=== PATIENT | female | born 1945 ===

== ENCOUNTER 2018-11-06 15:14 | Emergency (ER) | payer MEDICARE ==
[2018-11-06 15:14] VITALS: BMI 31.8
[2018-11-06 15:26] VITALS: BP 149/75; PULSE 90; RESP 18; TEMP 98.2; O2SAT 98
--- NOTE | 2018-11-06 15:55 | ED PDOC ---
HPI: General Adult Time Seen by Provider: 11/06/18 15:36 Chief Complaint (Nursing): Flu-like Symptoms Chief Complaint (Provider): Flu-like symptoms History Per: Patient History/Exam Limitations: no limitations Onset/Duration Of Symptoms: Hrs (today) Current Symptoms Are (Timing): Still Present Additional Complaint(s): Merary Gresham is a 73 year old female, with a past medical history of HTN and hypercholesterolemia, who presents to the emergency department complaining of a dry cough associated with shortness of breath onset for x1 week. Patient states she went to her PMD this morning who gave her a nebulizer treatment and prescription for Promethazine and Azithromycin. Patient did not have any bloodwork done at the PMD's office. Patient reports the dry cough made her anxious and began to feel short of breath again prompting ED visit. She denies any fever, chills or other medical complaints. PMD: Reji Rico Past Medical History Reviewed: Historical Data, Nursing Documentation, Vital Signs Vital Signs: Last Vital Signs Temp 98.2 F 11/06/18 15:22 Pulse 90 11/06/18 15:22 Resp 18 11/06/18 15:22 BP 149/75 11/06/18 15:22 Pulse Ox 98 11/06/18 15:22 - Medical History PMH: HTN, Hypercholesterolemia Denies: Chronic Kidney Disease - Surgical History Surgical History: Endoscopy - Family History Family History: States: Hypertension - Social History Current smoker - smoking cessation education provided: No Alcohol: None Drugs: Denies - Immunization History Hx Tetanus Toxoid Vaccination: No Hx Influenza Vaccination: No Hx Pneumococcal Vaccination: No - Home Medications Home Medications: Ambulatory Orders Medication Instructions Recorded Pravastatin 20 mg PO DAILY 06/09/13 Cholecalciferol (Vitamin D3) 5,000 iu PO DAILY 12/23/14 [Vitamin D3] RX: Hydrochlorothiazide 12.5 mg PO DAILY 12/23/14 RX: Losartan Potassium 50 mg PO DAILY 12/23/14 RX: Omeprazole 40 mg PO DAILY 12/23/14 Vitamin B Complex [Vitamin B 2,500 mcg PO DAILY 12/23/14 Complex W/B12] Famotidine [Pepcid] 20 mg PO BID #28 tab 02/06/17 Ondansetron [Zofran] 4 mg PO Q8H #9 tab 04/23/17 RX: Albuterol HFA [Ventolin HFA 90 2 puff IH [id number] #1 pump 11/06/18 mcg/actuation (8 g)] - Allergies Allergies/Adverse Reactions: Allergies Allergy/AdvReac Type Severity Reaction Status Date / Time No Known Allergies Allergy Verified 02/06/17 08:18 Review of Systems ROS Statement: Except As Marked, All Systems Reviewed And Found Negative Constitutional: Negative for: Fever, Chills Respiratory: Positive for: Cough (dry), Shortness of Breath Physical Exam - Reviewed Nursing Documentation Reviewed: Yes Vital Signs Reviewed: Yes - Physical Exam Appears: Positive for: No Acute Distress Head Exam: Positive for: ATRAUMATIC, NORMAL INSPECTION, NORMOCEPHALIC Skin: Positive for: Normal Color, Warm, Dry Eye Exam: Positive for: Normal appearance, EOMI, PERRL ENT: Positive for: Normal ENT Inspection Neck: Positive for: Normal, Painless ROM Cardiovascular/Chest: Positive for: Regular Rate, Rhythm. Negative for: Murmur Respiratory: Positive for: Normal Breath Sounds. Negative for: Respiratory Distress Gastrointestinal/Abdominal: Positive for: Normal Exam, Soft. Negative for: Tenderness, Guarding, Rebound Back: Positive for: Normal Inspection. Negative for: L CVA Tenderness, R CVA Tenderness, Vertebral Tenderness Extremity: Positive for: Normal ROM (upper and lower extremities). Negative for: Deformity, Swelling Neurologic/Psych: Positive for: Alert, Oriented - Laboratory Results Result Diagrams: 11/06/18 15:55 11/06/18 15:55 - ECG O2 Sat by Pulse Oximetry: 98 (RA) Pulse Ox Interpretation: Normal Medical Decision Making Medical Decision Making: Time: 15:36 Initial Impression: Flu-like symptoms Initial Plan: --BMP --CBC w/ differential --Chest portable [RAD] --Influenza A B --Reevaluation 16:40 CXR FINDINGS: LUNGS: No active pulmonary disease. PLEURA: No significant pleural effusion identified, no pneumothorax apparent. CARDIOVASCULAR: No aortic atherosclerotic calcification present. Normal cardiac size. No pulmonary vascular congestion. OSSEOUS STRUCTURES: No significant abnormalities. VISUALIZED UPPER ABDOMEN: Normal. OTHER FINDINGS: None. IMPRESSION: No active disease. 14:45 -Labs within normal limits, chest x-ray clear and influenza negative. Patient already has Rx Azithromycin and Promethazine cough syrup. Will give Albuterol pump. Viral illness expectations discussed with patient and was advised to follow up with PMD in x3-5 days. Scribe Attestation: Documented by Shin Hinkle, acting as a scribe for Seda Rashid MD Provider Scribe Attestation: All medical record entries made by the Scribe were at my direction and personally dictated by me. I have reviewed the chart and agree that the record accurately reflects my personal performance of the history, physical exam, medical decision making, and the department course for this patient. I have also personally directed, reviewed, and agree with the discharge instructions and disposition. Disposition - Clinical Impression Clinical Impression: Viral respiratory illness - Disposition Disposition: Routine/Home Disposition Time: 14:45 Condition: STABLE Additional Instructions: Use albuterol pump as needed for breathing difficulty. Take antibiotics and cough syrup as prescribed by primary medical doctor. Return to the emergency department if symptoms worsen or if new symptoms develop. Prescriptions: RX: Albuterol HFA [Ventolin HFA 90 mcg/actuation (8 g)] 2 puff IH [id number] #1 pump Instructions: Bacterial Upper Respiratory Infection, Adult (DC) Forms: [employer] (Cambodian) Print Language: CAPE VERDEAN
[2018-11-06 16:16] LABS: BASO % 0.7 % (0.0-2.0); EOS # 0.3 K/uL (0.0-0.7); EOS % 4.8 % (0.0-4.0); HEMOGLOBIN 13.6 g/dL (12.0-16.0); LYMPH # 1.7 K/uL (1.0-4.3); MEAN CELL VOLUME 85.9 fl (81.0-99.0); MEAN CORPUSCULAR HEMOGLOBIN 28.8 pg (27.0-31.0); MEAN CORPUSCULAR HGB CONC 33.5 g/dL (33.0-37.0); MEAN PLATELET VOLUME 8.8 fl (7.2-11.7); MONO # 0.7 K/uL (0.0-0.8); MONO % 11.8 % (0.0-10.0); NEUT # 3.1 K/uL (1.8-7.0); NEUT % 53.7 % (50.0-75.0); RBC 4.71 Mil/uL (3.80-5.20); RED CELL DISTRIBUTION WIDTH 14.2 % (11.5-14.5); WHITE BLOOD COUNT 5.8 K/uL (4.8-10.8)
[2018-11-06 16:23] LABS: BLOOD UREA NITROGEN 14 mg/dl (7-17); CALCIUM 9.1 mg/dL (8.4-10.2); GFR NON-AFRICAN AMERICAN > 60
--- NOTE | 2018-11-06 16:44 | RAD ---
Date of service: 11/06/2018 HISTORY: possible admission COMPARISON: No prior. FINDINGS: LUNGS: No active pulmonary disease. PLEURA: No significant pleural effusion identified, no pneumothorax apparent. CARDIOVASCULAR: No aortic atherosclerotic calcification present. Normal cardiac size. No pulmonary vascular congestion. OSSEOUS STRUCTURES: No significant abnormalities. VISUALIZED UPPER ABDOMEN: Normal. OTHER FINDINGS: None. IMPRESSION: No active disease.
== END 2018-11-06 17:05 | disposition home or self-care (01) ==
LOC: H.ER 15:14
DX: J06.9 Acute upper respiratory infection, unspecified (principal); E78.00 Pure hypercholesterolemia, unspecified; I10 Essential (primary) hypertension; Z79.899 Other long term (current) drug therapy

== ENCOUNTER 2018-12-30 21:26 | Emergency (ER) | payer MEDICARE ==
[2018-12-30 21:26] VITALS: BMI 31.8
[2018-12-30 22:08] VITALS: O2SAT 98
--- NOTE | 2018-12-30 23:17 | ED PDOC ---
HPI: Back Time Seen by Provider: 12/30/18 21:58 Chief Complaint (Nursing): Back Pain Chief Complaint (Provider): Back Pain History Per: Patient History/Exam Limitations: no limitations Onset/Duration Of Symptoms: Days (x2 weeks) Current Symptoms Are (Timing): Still Present Quality Of Discomfort: "Pain" Additional Complaint(s): 73 year old female with a history of hypertension presents to the ED with upper to lower back pain onset x2 weeks. Patient reports she slipped on icy surface, fell on her back, sustaining back injury. She states pain progressively worsened, prompting ED visit. Patient is taking Motrin with minimal relief. She denies any head injury or any other trauma. PMD: none provided Past Medical History Reviewed: Historical Data, Nursing Documentation, Vital Signs Vital Signs: Last Vital Signs Temp 98 F 12/30/18 21:31 Pulse 72 12/30/18 22:07 Resp 12 12/30/18 22:07 BP 175/80 H 12/30/18 22:07 Pulse Ox 98 12/30/18 22:07 - Medical History PMH: HTN, Hypercholesterolemia Denies: Chronic Kidney Disease - Surgical History Surgical History: Endoscopy Other surgeries: hysterectomy x30 years ago - Family History Family History: States: Hypertension - Immunization History Hx Tetanus Toxoid Vaccination: No Hx Influenza Vaccination: No Hx Pneumococcal Vaccination: No - Home Medications Home Medications: Ambulatory Orders Medication Instructions Recorded Pravastatin 20 mg PO DAILY 06/09/13 Cholecalciferol (Vitamin D3) 5,000 iu PO DAILY 12/23/14 [Vitamin D3] Hydrochlorothiazide 12.5 mg PO DAILY 12/23/14 Losartan Potassium 50 mg PO DAILY 12/23/14 Omeprazole 40 mg PO DAILY 12/23/14 Vitamin B Complex [Vitamin B 2,500 mcg PO DAILY 12/23/14 Complex W/B12] Famotidine [Pepcid] 20 mg PO BID #28 tab 02/06/17 Ondansetron [Zofran] 4 mg PO Q8H #9 tab 02/06/17 Albuterol HFA [Ventolin HFA 90 2 puff IH [id number] #1 pump 11/06/18 mcg/actuation (8 g)] Cyclobenzaprine [Cyclobenzaprine 10 mg PO TID PRN #15 tab 12/31/18 HCl] Lidocaine 5% [Lidoderm] 1 ea TD QAM #10 patch 12/31/18 - Allergies Allergies/Adverse Reactions: Allergies Allergy/AdvReac Type Severity Reaction Status Date / Time No Known Allergies Allergy Verified 12/30/18 21:31 Review of Systems ROS Statement: Except As Marked, All Systems Reviewed And Found Negative Musculoskeletal: Positive for: Back Pain Physical Exam - Reviewed Nursing Documentation Reviewed: Yes Vital Signs Reviewed: Yes - Physical Exam Appears: Positive for: No Acute Distress Head Exam: Positive for: ATRAUMATIC, NORMOCEPHALIC Skin: Positive for: Normal Color, Warm, Dry Eye Exam: Positive for: Normal appearance, EOMI, PERRL Cardiovascular/Chest: Positive for: Regular Rate, Rhythm. Negative for: Murmur Respiratory: Positive for: Normal Breath Sounds. Negative for: Respiratory Distress Gastrointestinal/Abdominal: Positive for: Normal Exam, Soft. Negative for: Tenderness Back: Positive for: Other (midline thoracic to lumbar tenderness, no defomity noted) Extremity: Positive for: Normal ROM (upper and lower). Negative for: Pedal Edema, Deformity Neurological/Psych: Positive for: Awake, Alert, Oriented (x3) - ECG O2 Sat by Pulse Oximetry: 98 (RA) Pulse Ox Interpretation: Normal Medical Decision Making Medical Decision Making: Time: 2237 Impression: traumatic back pain Differential diagnoses include but are not limited to: fracture, dislocation of spine, radiculopathy (of thoracic/lumbar), or contusion Time: 2299 --Patient signed out to Dr. Marquez by this provider, pending CT spine. Scribe Attestation: Documented by Adriana Fernandez, acting as a scribe for Sher Ramirez MD. Provider Scribe Attestation: All medical record entries made by the Scribe were at my direction and personally dictated by me. I have reviewed the chart and agree that the record accurately reflects my personal performance of the history, physical exam, medical decision making, and the department course for this patient. I have also personally directed, reviewed, and agree with the discharge instructions and disposition. Disposition - Clinical Impression Clinical Impression: Compression fracture of thoracic vertebra - Patient ED Disposition Is Patient to be Admitted: Transfer of Care Counseled Patient/Family Regarding: Studies Performed, Diagnosis - Disposition Referrals: [facility] [Outside] Disposition: Transfer of Care Disposition Time: 23:00 Condition: STABLE Prescriptions: Cyclobenzaprine [Cyclobenzaprine HCl] 10 mg PO TID PRN #15 tab PRN Reason: Back Pain Lidocaine 5% [Lidoderm] 1 ea TD QAM #10 patch Instructions: Vertebral Compression Fracture Forms: [employer] (Ecuadorean) Patient Signed Over To: Bob Marquez
--- NOTE | 2018-12-30 23:28 | ED PDOC ---
- ECG O2 Sat by Pulse Oximetry: 98 (RA) Pulse Ox Interpretation: Normal Medical Decision Making Medical Decision Makin:00 Patient signed out to this provider by Dr. Ramirez pending CTs of thoracic and lumbar spine. 01:41 CT Lumbar Spine FINDINGS: ALIGNMENT: Bony alignment is anatomic. DISCS/DEGENERATIVE CHANGES: T12/L1: No significant central canal or neural foraminal stenosis. L1/L2: No significant central canal or neural foraminal stenosis. L2/L3: No significant central canal or neural foraminal stenosis. There are diffuse disc bulges throughout the visualized lumbar spine. These are most severe at L3-L4 and L4-L5, Where there is mild flattening of the ventral aspect of the thecal sac. If indicated, this could be further evaluated with MRI. L4/5: No significant central canal or neural foraminal stenosis. L5/S1: No significant central canal or neural foraminal stenosis. BONES: There is a lucent lesion the T12 vertebral body involving the posterior right aspect of the vertebral body and extending into the right pedicle and right transverse process. This measures 3.5 x 1.2 cm on series 3, image 4. This demonstrates coarse, thickened trabeculae and is most compatible with a vertebral hemangioma. Other etiologies are not entirely excluded but considered unlikely. There is no expansion destruction of the bone cortex. Please correlate clinically. Minimal multilevel degenerative spine changes are present. No evidence for acute fractures or subluxations in the visualized lumbar spine. SOFT TISSUES: The soft tissues are unremarkable. ABDOMINAL AND PELVIC STRUCTURES Mild to moderate atherosclerosis of the visualized abdominal aorta. MISCELLANEOUS: Half no evidence for high-grade central canal stenosis. IMPRESSION: 1. There is a lucent lesion in the T12 vertebral body involving the posterior right aspect of the vertebral body and extending into the right pedicle and right transverse process. This demonstrates coarse, thickened trabeculae and is most compatible with a vertebral hemangioma. Other etiologies are not entirely excluded but considered unlikely. There is no expansion destruction of the bone cortex. Please correlate clinically. 2. Minimal multilevel degenerative spine changes are present. 3. Mild to moderate atherosclerosis of the visualized abdominal aorta. 4. No evidence for acute fractures or subluxations in the visualized lumbar spine. 5. Half no evidence for high-grade central canal stenosis. 6. There are diffuse disc bulges throughout the visualized lumbar spine. These are most severe at L3-L4 and L4-L5, Where there is mild flattening of the ventral aspect of the thecal sac. If indicated, this could be further evaluated with MRI. 01:43 CT Thoracic Spine FINDINGS: BONES: Again seen is the large probable hemangioma in the right aspect and right posterior elements of the T12 vertebral body. There is diffuse osteopenia. There is mild compression abnormality of T8 and T10. This is most likely chronic in nature. If indicated, this could be further evaluated with MRI. No convincing evidence for definite acute fracture or subluxation. ALIGNMENT: Bony alignment is anatomic. DEGENERATIVE CHANGES: Mild multilevel degenerative spine changes. SOFT TISSUES: The soft tissues are unremarkable. MISCELLANEOUS: There is linear atelectasis or scarring near the lung bases. There is a calcified granuloma in the right upper lobe near the anterior mediastinum. Mild atherosclerosis of the visualized thoracic and abdominal aorta. IMPRESSION: 1. Mild multilevel degenerative spine changes. 2. Again seen is the large probable hemangioma in the right aspect and right posterior elements of the T12 vertebral body. 3. There is diffuse osteopenia. 4. There is mild compression abnormality of T8 and T10. This is most likely chronic in nature. If indicated, this could be further evaluated with MRI. 5. No convincing evidence for definite acute fracture or subluxation. 02:45 Patient reports improvement of symptoms and requires no further treatment in the ED at this time. Diagnosis is a compression fracture of thoracocerebral spine. She is stable for discharge at this time. Scribe Attestation: Documented by Kimberli Berry, acting as a scribe Chico Marquez MD. Provider Scribe Attestation: All medical record entries made by the Scribe were at my direction and personally dictated by me. I have reviewed the chart and agree that the record accurately reflects my personal performance of the history, physical exam, medical decision making, and the department course for this patient. I have also personally directed, reviewed, and agree with the discharge instructions and disposition. Disposition - Clinical Impression Clinical Impression: Compression fracture of thoracic vertebra - POA Present On Arrival: None - Disposition Referrals: [facility] [Outside] Disposition: Routine/Home Disposition Time: 02:45 Condition: STABLE Prescriptions: Cyclobenzaprine [Cyclobenzaprine HCl] 10 mg PO TID PRN #15 tab PRN Reason: Back Pain Lidocaine 5% [Lidoderm] 1 ea TD QAM #10 patch Instructions: Vertebral Compression Fracture Forms: [employer] (Palestinian)
[2018-12-31] MEDS ORDERED: Lidocaine 5% Patch TD STA (02:19)
[2018-12-31 02:46] VITALS: BP 155/72; PULSE 83; RESP 18; TEMP 98.2
--- NOTE | 2018-12-31 12:57 | CT ---
Date of service: 12/30/2018 PROCEDURE: CT Thoracic and lumbar spine without contrast HISTORY: thoracic spine pain and lumbar spine pain COMPARISON: Chest x-ray 11/06/2018 TECHNIQUE: Axial computed tomography images were obtained of the thoracic and lumbar spine without intravenous contrast. Coronal and sagittal reformatted images were created and reviewed. Radiation dose: Total exam DLP = 549.68 mGy-cm. This CT exam was performed using one or more of the following dose reduction techniques: Automated exposure control, adjustment of the mA and/or kV according to patient size, and/or use of iterative reconstruction technique. FINDINGS: VERTEBRAE: There is evidence of a probable recent fracture of the inferior aspect of the T9 vertebral body best seen on sagittal image 23 through 29 series 401. No significant retropulsion is noted. There is additional mild compression deformity of the superior endplate region. No epidural hematoma is appreciated. There is mild chronic superior endplate Schmorl's node deformity and subtle compression of the T7 vertebral body. No other appreciable acute fractures within the thoracic spine region is noted. 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 Within the lumbar spine region there is minimal anterior listhesis of L4 over L5. No acute compression fracture is seen in the lumbar spine region. No lytic process is identified. Mild disc bulging is identified. No central canal narrowing is seen in the thoracic or lumbar spine region. Degenerate facet changes are seen in the lumbar spine region. Mild amounts of neural foraminal narrowing are seen in the lower lumbar spine. No sacroiliac joint widening is seen. DISCS/SPINAL CANAL/NEURAL FORAMINA: Mild multilevel degenerative disc disease throughout the thoracic spine region. Mild endplate changes are noted as well as degenerative facet changes. Mild bilateral neural foraminal narrowing is seen at multiple levels. No appreciable neural foraminal mass is identified. Visualized posterior ribs are intact.. PARASPINAL SOFT TISSUES: There is evidence of some mild soft tissue prominence adjacent to the T9 vertebral body suggesting some soft tissue edema from the fracture. No paraspinal soft tissue masses are appreciated in the lumbar spine region. Visualized retroperitoneum shows no evidence of adenopathy. Visualized kidneys are within normal limits. Visualized pancreas is unremarkable.. OTHER FINDINGS: There is evidence of a very large thyroid goiter with extension of the inferior aspect of the left thyroid gland into the substernal region and superior mediastinum with deviation of the trachea to the right. This is noted in retrospect on the prior chest x-ray. Visualized lungs are unremarkable with mild interstitial change and scarring posteriorly at the lung bases. No pleural effusion is seen. Heart is mildly enlarged. IMPRESSION: CT scan of the thoracic and lumbar spine reveals evidence of a probable recent inferior endplate fracture of the T9 vertebral body with mild adjacent paraspinal soft tissue but no retropulsion and/or central canal stenosis seen. No fractures are seen in the lumbar spine region. Fracture was not mentioned on the preliminary report. This case will therefore be placed into the PA review folder. Incidental very large thyroid goiter extending into the left side of the superior mediastinum and deviating the trachea to the right.
== END 2018-12-31 02:45 | disposition home or self-care (01) ==
LOC: H.ER 21:26
DX: M48.54XA Collapsed vertebra, not elsewhere classified, thoracic region, initial encounter for fracture (principal); I10 Essential (primary) hypertension; Z90.710 Acquired absence of both cervix and uterus; W00.0XXA Fall on same level due to ice and snow, initial encounter
CPT/HCPCS: 72128; 72131; 96372; 99283; J1885

== ENCOUNTER 2019-02-07 12:59 | Emergency (ER) | payer MEDICARE ==
[2019-02-07 13:01] VITALS: BMI 31.8
[2019-02-07 13:29] VITALS: PULSE 83; RESP 16; TEMP 98.7; O2SAT 100
--- NOTE | 2019-02-07 14:33 | ED PDOC ---
HPI: Back Time Seen by Provider: 02/07/19 13:42 Chief Complaint (Nursing): Abdominal Pain Chief Complaint (Provider): Back Pain History Per: Patient History/Exam Limitations: no limitations Onset/Duration Of Symptoms: Days Current Symptoms Are (Timing): Still Present Additional Complaint(s): 73 year old female with a past medical history of hypertension and hyperchole sterolemia who was seen here on 12/30 after fall with injury to back where the CT of thoracic and lumbar spine revealed a T9 end plate fracture. Patient returns today with persistent pain to mid back and denies any shortness of breath. She offers no other medical complaints at this time. PMD: Reji Rico Past Medical History Reviewed: Historical Data, Nursing Documentation, Vital Signs Vital Signs: Last Vital Signs Temp 98.7 F 02/07/19 13:25 Pulse 83 02/07/19 13:25 Resp 16 02/07/19 13:25 BP 187/65 H 02/07/19 13:25 Pulse Ox 100 02/07/19 13:25 - Medical History PMH: HTN, Hypercholesterolemia Denies: Chronic Kidney Disease - Surgical History Surgical History: Endoscopy - Family History Family History: States: Hypertension - Social History Current smoker - smoking cessation education provided: No Alcohol: None Drugs: Denies - Immunization History Hx Tetanus Toxoid Vaccination: No Hx Influenza Vaccination: No Hx Pneumococcal Vaccination: No - Home Medications Home Medications: Ambulatory Orders Medication Instructions Recorded Pravastatin 20 mg PO DAILY 06/09/13 Cholecalciferol (Vitamin D3) 5,000 iu PO DAILY 12/23/14 [Vitamin D3] Hydrochlorothiazide 12.5 mg PO DAILY 12/23/14 Losartan Potassium 50 mg PO DAILY 12/23/14 Omeprazole 40 mg PO DAILY 12/23/14 Vitamin B Complex [Vitamin B 2,500 mcg PO DAILY 12/23/14 Complex W/B12] Famotidine [Pepcid] 20 mg PO BID #28 tab 02/06/17 Ondansetron [Zofran] 4 mg PO Q8H #9 tab 02/06/17 Albuterol HFA [Ventolin HFA 90 2 puff IH [id number] #1 pump 11/06/18 mcg/actuation (8 g)] Cyclobenzaprine [Cyclobenzaprine 10 mg PO TID PRN #15 tab 12/31/18 HCl] Lidocaine 5% [Lidoderm] 1 ea TD QAM #10 patch 12/31/18 traMADol [Ultram] 50 mg PO Q8 #10 tab 02/07/19 - Allergies Allergies/Adverse Reactions: Allergies Allergy/AdvReac Type Severity Reaction Status Date / Time No Known Allergies Allergy Verified 02/07/19 13:25 Review of Systems ROS Statement: Except As Marked, All Systems Reviewed And Found Negative Respiratory: Negative for: Shortness of Breath Musculoskeletal: Positive for: Back Pain Physical Exam - Reviewed Nursing Documentation Reviewed: Yes Vital Signs Reviewed: Yes - Physical Exam Appears: Positive for: Non-toxic, No Acute Distress Head Exam: Positive for: ATRAUMATIC, NORMAL INSPECTION, NORMOCEPHALIC Skin: Positive for: Normal Color, Warm, DRY Eye Exam: Positive for: EOMI, Normal appearance, PERRL ENT: Positive for: Normal ENT Inspection Neck: Positive for: Normal, Painless ROM Cardiovascular/Chest: Positive for: Regular Rate, Rhythm. Negative for: Murmur Respiratory: Positive for: Normal Breath Sounds, Other (equal breath sounds bilaterally ). Negative for: Respiratory Distress Gastrointestinal/Abdominal: Positive for: Normal Exam, Soft. Negative for: Tenderness Back: Positive for: Other (tenderness to midline spinal area, T9 region ). Negative for: L CVA Tenderness, R CVA Tenderness, Vertebral Tenderness Extremity: Positive for: Normal ROM. Negative for: Deformity, Swelling Neurological/Psych: Positive for: Awake, Alert, Normal Tone, Oriented (x3). Negative for: Motor/Sensory Deficits - ECG O2 Sat by Pulse Oximetry: 100 (RA) Pulse Ox Interpretation: Normal Medical Decision Making Medical Decision Making: Time: 14:02 Plan: --ED Urine Dipstick --X-Ray Ribs and Chest LT ------ Scribe Attestation: Documented by Anastasiia Arzate, acting as a scribe for Moris Nelson MD. Provider Scribe Attestation: All medical record entries made by the Scribe were at my direction and personally dictated by me. I have reviewed the chart and agree that the record accurately reflects my personal performance of the history, physical exam, medical decision making, and the department course for this patient. I have also personally directed, reviewed, and agree with the discharge instructions and disposition. Disposition - Clinical Impression Clinical Impression: Compression fracture of thoracic vertebra - Patient ED Disposition Is Patient to be Admitted: No - Disposition Referrals: [facility] [Outside] Disposition: Routine/Home Disposition Time: 14:56 Condition: FAIR Prescriptions: traMADol [Ultram] 50 mg PO Q8 #10 tab Instructions: Vertebral Compression Fracture Forms: [facility] [employer] (Japanese) Print Language: ENGLISH
--- NOTE | 2019-02-07 15:00 | RAD ---
Date of service: 02/07/2019 PROCEDURE: Radiographs of the Chest and Left Ribs. HISTORY: trauma COMPARISON: 11/06/2018. TECHNIQUE: Frontal radiograph of the chest and multiple oblique radiographs of the left ribs were obtained. 4 views obtained. FINDINGS: LEFT RIBS: No fracture or focal lesion visualized. LUNGS: Clear. PLEURA: No pneumothorax or pleural fluid. CARDIOVASCULAR: Normal cardiac size. No pulmonary vascular congestion. No aortic atherosclerotic calcification present OTHER FINDINGS: Generalized osteopenia IMPRESSION: Unremarkable radiographs of the chest and left ribs. No left rib fracture.
[2019-02-07 15:52] VITALS: BP 148/74
== END 2019-02-07 14:57 | disposition home or self-care (01) ==
LOC: H.ER 12:59
DX: M48.54XA Collapsed vertebra, not elsewhere classified, thoracic region, initial encounter for fracture (principal); E78.00 Pure hypercholesterolemia, unspecified; I10 Essential (primary) hypertension

== ENCOUNTER 2019-03-12 21:49 | Emergency (ER) | payer MEDICARE ==
[2019-03-12 21:49] VITALS: BMI 31.8
[2019-03-12 22:11] VITALS: RESP 16
[2019-03-12] MEDS ORDERED: Sodium Chloride 0.9% 1,000 ML IV STA (22:43)
[2019-03-12 23:27] LABS: ALB/GLOB RATIO 1.2 (1.0-2.1); ALBUMIN 4.2 g/dL (3.5-5.0); ALT/SGPT 30 U/L (9-52); AST/SGOT 33 U/L (14-36); BLOOD UREA NITROGEN 14 mg/dl (7-17); CALCIUM 8.7 mg/dL (8.4-10.2); GFR NON-AFRICAN AMERICAN > 60
[2019-03-12 23:37] LABS: BASO % 0.6 % (0.0-2.0); EOS # 0.2 K/uL (0.0-0.7); EOS % 2.2 % (0.0-4.0); HEMOGLOBIN 12.5 g/dL (12.0-16.0); LYMPH # 1.8 K/uL (1.0-4.3); LYMPH % 24.3 % (20.0-40.0); MEAN CELL VOLUME 86.1 fl (81.0-99.0); MEAN CORPUSCULAR HEMOGLOBIN 29.3 pg (27.0-31.0); MEAN PLATELET VOLUME 8.8 fl (7.2-11.7); MONO # 0.5 K/uL (0.0-0.8); MONO % 6.6 % (0.0-10.0); NEUT % 66.3 % (50.0-75.0); NRBC % 0.1 % (0.0-0.0); RBC 4.26 Mil/uL (3.80-5.20); RED CELL DISTRIBUTION WIDTH 13.1 % (11.5-14.5); WHITE BLOOD COUNT 7.6 K/uL (4.8-10.8)
--- NOTE | 2019-03-13 02:22 | ED PDOC ---
HPI: General Adult Time Seen by Provider: 03/12/19 22:27 Chief Complaint (Nursing): GI Problem Chief Complaint (Provider): Dizziness Additional Complaint(s): Dizziness, spinning, worse with movement positional Past Medical History Vital Signs: Last Vital Signs Temp 98 F 03/12/19 22:10 Pulse 79 03/12/19 22:10 Resp 16 03/12/19 22:10 BP 170/74 H 03/12/19 22:10 Pulse Ox 97 03/12/19 22:10 Primary Care Provider: Reji Rico - Medical History PMH: HTN, Hypercholesterolemia Denies: Chronic Kidney Disease - Surgical History Surgical History: Endoscopy - Family History Family History: States: Hypertension - Immunization History Hx Tetanus Toxoid Vaccination: No Hx Influenza Vaccination: No Hx Pneumococcal Vaccination: No - Home Medications Home Medications: Ambulatory Orders Medication Instructions Recorded Pravastatin 20 mg PO DAILY 06/09/13 Cholecalciferol (Vitamin D3) 5,000 iu PO DAILY 12/23/14 [Vitamin D3] Hydrochlorothiazide 12.5 mg PO DAILY 12/23/14 Losartan Potassium 50 mg PO DAILY 12/23/14 Omeprazole 40 mg PO DAILY 12/23/14 Vitamin B Complex [Vitamin B 2,500 mcg PO DAILY 12/23/14 Complex W/B12] Famotidine [Pepcid] 20 mg PO BID #28 tab 02/06/17 Ondansetron [Zofran] 4 mg PO Q8H #9 tab 02/06/17 Albuterol HFA [Ventolin HFA 90 2 puff IH [id number] #1 pump 11/06/18 mcg/actuation (8 g)] Cyclobenzaprine [Cyclobenzaprine 10 mg PO TID PRN #15 tab 12/31/18 HCl] Lidocaine 5% [Lidoderm] 1 ea TD QAM #10 patch 12/31/18 Non-Formulary 1 ea .ROUTE Q6 #1 ea 02/07/19 traMADol [Ultram] 50 mg PO Q8 #10 tab 02/07/19 Meclizine [Meclizine*] 25 mg PO Q6 PRN #30 tab 03/13/19 - Allergies Allergies/Adverse Reactions: Allergies Allergy/AdvReac Type Severity Reaction Status Date / Time No Known Allergies Allergy Verified 02/07/19 13:25 - Laboratory Results Result Diagrams: 03/12/19 22:57 05/27/19 22:57 Lab Results: Troponin I < 0.0120 ng/mL (0.00-0.120) 03/12/19 22:57 Total Bilirubin 0.6 mg/dl (0.2-1.3) 03/12/19 22:57 AST 33 U/L (14-36) 03/12/19 22:57 ALT 30 U/L (9-52) 03/12/19 22:57 Alkaline Phosphatase 105 U/L (38-126) 03/12/19 22:57 Total Protein 7.6 G/DL (6.3-8.2) 03/12/19 22:57 Albumin 4.2 g/dL (3.5-5.0) 03/12/19 22:57 Globulin 3.4 gm/dL (2.2-3.9) 03/12/19 22:57 Albumin/Globulin Ratio 1.2 (1.0-2.1) 03/12/19 22:57 - ECG O2 Sat by Pulse Oximetry: 97 Medical Decision Making Medical Decision Makin CT Head FINDINGS: BRAIN: No acute intraparenchymal hemorrhage. No mass lesion. No CT evidence for acute territorial infarct. No midline shift or extra-axial collections. VENTRICLES: No hydrocephalus. ORBITS: The orbits are unremarkable. SINUSES AND MASTOIDS: The paranasal sinuses and mastoid air cells are clear. BONES: No fracture. SOFT TISSUES: Unremarkable. IMPRESSION: No acute intracranial abnormality. Disposition - Clinical Impression Clinical Impression: Vertigo - Patient ED Disposition Is Patient to be Admitted: No Counseled Patient/Family Regarding: Diagnosis, Need For Followup, Rx Given - Disposition Referrals: [facility] [Outside] Disposition: Routine/Home Disposition Time: 05:14 Condition: GOOD Prescriptions: Meclizine [Meclizine*] 25 mg PO Q6 PRN #30 tab PRN Reason: Dizziness Instructions: Vertigo (a Type of Dizziness) Forms: [employer] (Yoruba) Print Language: ARG[place]
[2019-03-13 03:48] VITALS: TEMP 98
[2019-03-13 05:05] VITALS: BP 132/62; PULSE 79
[2019-03-13 05:16] VITALS: O2SAT 97
--- NOTE | 2019-03-13 09:34 | CT ---
Date of service: 03/12/2019 PROCEDURE: CT HEAD WITHOUT CONTRAST. HISTORY: dizziness, headache COMPARISON: None available. TECHNIQUE: Axial computed tomography images were obtained through the head/brain without intravenous contrast. Radiation dose: Total exam DLP = 722.76 mGy-cm. This CT exam was performed using one or more of the following dose reduction techniques: Automated exposure control, adjustment of the mA and/or kV according to patient size, and/or use of iterative reconstruction technique. FINDINGS: HEMORRHAGE: No intracranial hemorrhage. BRAIN: No mass effect or edema. No atrophy or chronic microvascular ischemic changes. VENTRICLES: Unremarkable. No hydrocephalus. CALVARIUM: Unremarkable. PARANASAL SINUSES: Soft tissue opacification of a lateral right sphenoid air cell overseas axis series 3, image 7) No bony destruction. However there asymmetrical sclerotic changes here can noting chronicity. Chronic soft tissue inflammatory changes inferred. MASTOID AIR CELLS: Unremarkable as visualized. No inflammatory changes. OTHER FINDINGS: None. IMPRESSION: No intracranial hemorrhage or mass effect. Soft tissue opacification smaller lateral right sphenoid air cell with sclerotic changes can noting chronicity. Chronic inflammatory changes and affecting this right lateral sphenoid air cell inferred. These findings were not mentioned on the preliminary [place] rad report. Comments: Study marked for PA review .
--- NOTE | 2019-03-13 09:46 | CARD ---
APPROVED REPORT Date of service: 03/12/2019 EKG Measurement Heart [id number] <Conclusion> Normal sinus rhythm Normal ECG
== END 2019-03-13 05:32 | disposition home or self-care (01) ==
LOC: H.ER 21:49
DX: R42 Dizziness and giddiness (principal)
CPT/HCPCS: 70450; 80053; 83605; 83735; 84100; 84484; 85025; 93005; 96374; 99285; J2405; J7030